=== PATIENT | female | born 1970 | race Caucasian/White ===

== ENCOUNTER 2018-06-27 13:39 | Emergency (ER) | payer MEDICAID ==
[~2018-06-27] VITALS: Ht 175.3 cm; Wt 70.9 kg
[~2018-06-27 13:39] MED LIST: FLAGYL500 MG PO; KLONOPIN1 MG PO; PERCOCET 10/3251 TA1 PO; TOPAMAX100 MG PO; ZOFRAN4 MG PO
[2018-06-27 13:41] VITALS: Ht 175.3 cm; Wt 70.9 kg
[2018-06-27] MEDS ORDERED: LEVOXYL75 MCG PO (13:42)
[2018-06-27] MEDS ORDERED: BUTISOL SODIUM30 MG PO (13:43)
[2018-06-27] MEDS ORDERED: MAXALT10 MG PO (13:43)
[2018-06-27] MEDS ORDERED: PROTONIX40 MG PO (13:43)
[2018-06-27 14:11] LABS: APPEARANCE CLEAR (CLEAR); BILIRUBIN NEGATIVE (NEGATIVE); COLOR YELLOW (YELLOW); GLUCOSE NEGATIVE (NEGATIVE); KETONE NEGATIVE (NEGATIVE); NITRITE NEGATIVE (NEGATIVE); PROTEIN NEGATIVE (NEGATIVE); SPECIFIC GRAVITY 1.005 (1.005-1.020)
[2018-06-27 14:16] LABS: AMORPHOUS SEDIMENT <1+ /lpf (NONE SEEN); BACTERIA MANY /hpf (NONE SEEN); EPITHELIAL CELLS 0-5 /hpf (0-5); MUCUS <1+ /lpf (NONE SEEN); RED CELLS - URINE 0-5 /hpf (0-5); WHITE CELLS - URINE 0-5 /hpf (0-5)
[2018-06-27 14:36] LABS: EOSINOPHILS 4.8 % (0-7); HEMATOCRIT 36.9 % (36.0-48.0); HEMOGLOBIN 12.7 g/dL (12-16); IMMATURE GRANULOCYTES 0.2 % (0-5); LYMPHOCYTES 30.3 % (15-50); MCH 31.2 pg (26.0-34.0); MCHC 34.4 g/dL (31.0-37.0); MCV 90.7 fL (80.0-100.0); MEAN PLATELET VOLUME 11.5 fL (7.4-10.4); MONOCYTES 14.3 % (2-11); NEUTROPHILS 49.4 % (40-80); PLATELET COUNT 220 10x3/uL (130-400); RBC 4.07 10x6/uL (4.00-5.40); RDW 14.8 % (11.5-14.5); WBC 5.2 10x3/uL (4.8-10.8)
[2018-06-27 14:50] LABS: ALBUMIN 3.5 g/dL (3.4-5.0); ANION GAP 10.9 mmol/L (8-16); BILIRUBIN - TOTAL 0.49 mg/dL (0.2-1.3); CALCIUM 8.6 mg/dL (8.5-10.1); CARBON DIOXIDE 27.9 mmol/L (21.0-32.0); CREATININE - SERUM 0.9 mg/dL (0.6-1.3); POTASSIUM - SERUM 3.8 mmol/L (3.5-5.1); PROTEIN - SERUM 6.9 g/dL (6.4-8.2)
[2018-06-27 16:51] VITALS: BP 112/68
== END 2018-06-27 16:52 | disposition home or self-care (01) ==
LOC: D.ER 13:39
PROVIDERS: Emergency Medicine
DX: K52.29 Other allergic and dietetic gastroenteritis and colitis (principal); R11.2 Nausea with vomiting, unspecified; R19.7 Diarrhea, unspecified; G40.909 Epilepsy, unspecified, not intractable, without status epilepticus; K21.9 Gastro-esophageal reflux disease without esophagitis; F17.200 Nicotine dependence, unspecified, uncomplicated

== ENCOUNTER 2018-08-10 15:37 | Emergency (ER) | payer MEDICAID ==
[~2018-08-10] VITALS: Ht 175.3 cm; Wt 71.4 kg
[~2018-08-10 15:37] MED LIST changes: +BUTISOL SODIUM30 MG PO; +LEVOXYL75 MCG PO; +MAXALT10 MG PO; +PROTONIX40 MG PO
[2018-08-10 15:51] VITALS: Ht 175.3 cm; Wt 71.4 kg
[2018-08-10] MEDS ORDERED: VALIUM5 MG PO (15:54)
[2018-08-10] MEDS ORDERED: BUTALB-APAP-CA1 EACH PO (15:55)
[2018-08-10 18:40] VITALS: BP 135/89
== END 2018-08-10 18:41 | disposition home or self-care (01) ==
LOC: D.ER 15:37
DX: S16.1XXA Strain of muscle, fascia and tendon at neck level, initial encounter (principal); V49.9XXA Car occupant (driver) (passenger) injured in unspecified traffic accident, initial encounter; Y93.89 Activity, other specified; Y92.410 Unspecified street and highway as the place of occurrence of the external cause; M54.5 Low back pain; R07.89 Other chest pain; G40.909 Epilepsy, unspecified, not intractable, without status epilepticus; K21.9 Gastro-esophageal reflux disease without esophagitis; F17.200 Nicotine dependence, unspecified, uncomplicated